=== PATIENT | male | born 1980 | race Caucasian/White ===

== ENCOUNTER → 2020-11-14 10:50 | Outpatient (CLI) | payer BC, SELFPAY ==
--- NOTE | ~2020-11-14 | MR_ITS ---
EXAMINATION: MR lumbar spine wo/w con DATE: 11/14/2020 11:43 INDICATION: Intervertebral disc disorder with myelopathy. Low back pain. Right leg pain. TECHNIQUE: Magnetic resonance imaging (MRI) of the lumbar spine was performed without and with 17 mL MultiHance intravenous contrast. Sequences included sagittal T2-weighted FSE, sagittal T2-weighted FS FSE, and sagittal and axial T1-weighted FSE. Postcontrast sequences included axial T2-weighted FSE a nd axial and sagittal T1-weighted FS FSE. COMPARISON: None FINDINGS: Bone alignment is normal. Vertebral body heights are normal. There is mildly decreased disc height at L4-L5 and moderately decreased disc height at L5-S1 with endplate remodeling. There is a h emangioma in L4 vertebral body. The distal spinal cord signal intensity is normal. The conus medullar is is at L1. There is a 3.7 cm cyst in left kidney. The following disc levels are specifically discus sed: L1-L2: The disc does not extend beyond the endplate margin. There is mild bilateral facet joint osteo arthritis. There is no neural foraminal stenosis. There is no central canal stenosis. L2-L3: The disc does not extend beyond the endplate margin. There is mild bilateral facet joint osteo arthritis. There is no neural foraminal stenosis. There is no central canal stenosis. L3-L4: The disc does not extend beyond the endplate margin. There is mild bilateral facet joint osteo arthritis. There is no neural foraminal stenosis. There is no central canal stenosis. L4-L5: The disc is bulging and has an annular fissure. There is mild bilateral facet joint osteoarthr itis. There is mild bilateral neural foraminal stenosis. There is mild central canal stenosis. L5-S1: The disc is bulging and has an annular fissure. There is no facet joint osteoarthritis. There is mild bilateral neural foraminal stenosis. There is mild central canal stenosis. IMPRESSION: 1. Moderate lumbar spondylosis. Reviewed, dictated and finalized at location A. [employer]
[2020-11-14 11:13] LABS: Estimated Glomerular Filt Rate > 60
== END ==
PROVIDERS: PCP Family Medicine Sports Medicine
DX: M51.06 Intervertebral disc disorders with myelopathy, lumbar region (principal); M99.13 Subluxation complex (vertebral) of lumbar region; M47.896 Other spondylosis, lumbar region
CPT/HCPCS: 72158; A9577